=== PATIENT | female | born 1935 | race Caucasian/White ===

== ENCOUNTER 2017-05-30 14:37 | Inpatient (IN) | payer MEDICARE ==
[2017-05-30] VITALS (13 sets, daily range): BP systolic 115–172; BP diastolic 66–87; PULSE 64–89; RESP 16–20; TEMP 97.9–98.6; O2SAT 97–99
[~2017-05-30] VITALS: Ht 157.5 cm; Wt 59.5 kg
[~2017-05-30 14:37] MED LIST: CALA180T PO; LIPI40TA PO; SOTA80TA PO; ZYRT10TA12 PO
[2017-05-30] MEDS ORDERED: ASPIRIN 81 MG CHEW TAB PO STA (14:59)
[2017-05-30] MEDS ORDERED: HEPARIN SODIUM - IV 10,000 UNITS/10 ML VIAL IV STA (14:59)
[2017-05-30] MEDS ORDERED: NITROGLYCERIN 0.4 MG SL 25 TABS/BTL SL STA (14:59)
[2017-05-30] MEDS ORDERED: SODIUM CHLOR 0.9% 1000 ML INJ 1,000 ML IV ONE (14:59)
[2017-05-30] MEDS ORDERED: SODIUM CHLORIDE 0.9% FLUSH 10 ML FLUSH IVF PRN (15:00)
[2017-05-30] MEDS ORDERED: NITROGLYCERIN-DEXTROSE INJ 250 ML IV SCH (15:00)
[2017-05-30] MEDS ORDERED: NITROGLYCERIN 0.4 MG SL 25 TABS/BTL SL ONE (15:02)
[2017-05-30] MEDS ORDERED: NITROGLYCERIN-DEXTROSE INJ 250 ML ONE (15:02)
[2017-05-30] MEDS ORDERED: HEPARIN-NS/PF INJ 500 ML ONE (15:20)
[2017-05-30] MEDS ORDERED: MIDAZOLAM HCL 2 MG/2 ML VIAL ONE (15:21)
--- NOTE | 2017-05-30 15:26 | RADRPT ---
EXAM DATE/TIME: 05/30/2017 15:00 [place] COMPARISON: No previous studies available for comparison. INDICATIONS : Stemi alert MEDICAL HISTORY : None. SURGICAL HISTORY : None. ENCOUNTER: Initial ACUITY: 1 day PAIN SCORE: 10/10 LOCATION: Bilateral chest FINDINGS: A single view of the chest demonstrates the lungs to be symmetrically aerated without evidence of mas s, infiltrate or effusion. The cardiomediastinal contours are unremarkable. Osseous structures are intact. CONCLUSION: 1. No acute cardiopulmonary findings. Zak Merlos MD on May 30, 2017 at 15:24 Board Certified Radiologist. This report was verified electronically.
[2017-05-30] MEDS ORDERED: BIVALIRUDIN 250 MG VIAL ONE (15:32)
[2017-05-30 15:34] LABS: I-STAT SODIUM 141 MMOL/L (138-146)
[2017-05-30 15:35] LABS: BASOPHIL # 0.1 TH/MM3 (0-0.2); BASOPHIL % 0.8 % (0.0-2.0); EOSINOPHIL # 0.8 TH/MM3 (0-0.4); EOSINOPHIL % 5.3 % (0.0-4.0); HEMATOCRIT 39.6 % (35.0-46.0); HEMO FLAGS DIFF FINAL; LYMPH % 21.3 % (9.0-44.0); MEAN CELL VOLUME 90.7 FL (80.0-100.0); MEAN CORPUSCULAR HEMOGLOBIN 29.4 PG (27.0-34.0); MEAN CORPUSCULAR HGB CONC 32.4 % (32.0-36.0); MONO % 9.6 % (0.0-8.0); PLATELET COUNT 280 TH/MM3 (150-450); RED BLOOD COUNT 4.37 MIL/MM3 (4.00-5.30); RED CELL DISTRIBUTION WIDTH 13.3 % (11.6-17.2); WHITE BLOOD COUNT 14.2 TH/MM3 (4.0-11.0)
[2017-05-30] MEDS ORDERED: HEPARIN SODIUM - IV 10,000 UNITS/10 ML VIAL ONE (15:37)
--- NOTE | 2017-05-30 15:37 | PD ---
HPI Chief Complaint: Chest Pain Time Seen by Provider: 14:59 Travel History International Travel<30 days: No Contact w/Intl Traveler<30days: No Traveled to known affect area: No History of Present Illness HPI 82-year-old female with history of hypertension, A. fib, high cholesterol, presents to the ER today with substernal chest pains that started at 1:30 PM. She reports worsening with walking. She reports mild shortness of breath. She denies any other issues. Pain is currently reported at a 7 out of 10. EKG shows new left bundle branch block with ST depressions in the inferior lead and ST elevations and one in aVL. Concerning for ST elevation [place]. Modifying Factors: None Associated Signs & Symptoms: Substernal chest pain, STEMI alert Risk Factors: Hypertension, high cholesterol, A. fib PFSH Past Medical History Cancer: No Diabetes: No Glaucoma: No Hepatitis: No Hiatal Hernia: No Hypertension: Yes Thyroid Disease: No Past Surgical History Abdominal Surgery: Yes (APPENDECTOMY) Cardiac Surgery: No Endocrine Surgery: No Eye Surgery: Yes (LEFT CATARACT JUN 2010 ) Genitourinary Surgery: Yes (BLADDER SUSPENSION) Gynecologic Surgery: Yes (TUBAL LIGATION; HYST) Oral Surgery: Yes (T&A) Pacemaker: No Thoracic Surgery: No Social History Alcohol Use: No Tobacco Use: No Allergies-Medications (Allergen,Severity, Reaction): Coded Allergies: Penicillin (Verified Allergy, Intermediate, HIVES, 01/14/11) [place] (Verified Allergy, Mild, ITCHING, 01/14/11) Reported Meds & Prescriptions Reported Meds & Active Scripts Active Reported Zyrtec (Cetirizine HCl) 10 Mg Tab 10 Mg PO DAILY Lipitor (Atorvastatin Calcium) 40 Mg Tab 40 Mg PO DAILY Isoptin Sr (Verapamil HCl) 180 Mg Tabcr 180 Mg PO DAILY Betapace (Sotalol HCl) 80 Mg Tab 80 Mg PO DAILY Review of Systems Except as stated in HPI: all other systems reviewed are Neg Physical Exam Narrative GENERAL: Well-developed elderly white female patient currently in moderate distress. Awake and oriented 3. SKIN: Focused skin assessment warm/dry. HEAD: Atraumatic. Normocephalic. EYES: Pupils equal and round. No scleral icterus. No injection or drainage. ENT: No nasal bleeding or discharge. Mucous membranes pink and moist. NECK: Trachea midline. No JVD. CARDIOVASCULAR: Regular rate and rhythm. No murmur appreciated. Pulses are present and equal bilaterally. RESPIRATORY: No accessory muscle use. Clear to auscultation. Breath sounds equal bilaterally. GASTROINTESTINAL: Abdomen soft, non-tender, nondistended. Hepatic and splenic margins not palpable. MUSCULOSKELETAL: No obvious deformities. No clubbing. No cyanosis. No edema. NEUROLOGICAL: Awake and alert. No obvious cranial nerve deficits. Motor grossly within normal limits. Normal speech. PSYCHIATRIC: Appropriate mood and affect; insight and judgment normal. Data Data Last Documented VS Vital Signs Date Time Temp Pulse Resp B/P Pulse Ox O2 Delivery O2 Flow Rate FiO2 05/30/17 14:55 98 Nasal Cannula 2.00 05/30/17 14:39 98.1 67 18 172/78 Orders Electrocardiogram (05/30/17 ) Troponin I (05/30/17 14:59) Ckmb (Isoenzyme) Profile (05/30/17 14:59) Complete Blood Count With Diff (05/30/17 14:59) I-Stat Profile (05/30/17 14:59) I-Stat Creatinine (05/30/17 14:59) Calcium (05/30/17 14:59) Magnesium (Mg) (05/30/17 14:59) Prothrombin Time / Inr (Pt) (05/30/17 14:59) Act Partial Throm Time (Ptt) (05/30/17 14:59) B-Type Natriuretic Peptide (05/30/17 14:59) Chest, Single Ap (05/30/17 14:59) Electrocardiogram (05/30/17 14:59) Oxygen Administration (05/30/17 14:59) Iv Access Insert/Monitor (05/30/17 14:59) Oximetry (05/30/17 14:59) Sodium Chlor 0.9% 1000 Ml Inj (Ns 1000 M (05/30/17 14:59) Sodium Chloride 0.9% Flush (Ns Flush) (05/30/17 15:00) Aspirin Chew (Aspirin Chew) (05/30/17 14:59) Nitroglycerin Sl (Nitrostat Sl) (05/30/17 14:59) Nitroglycerin-Dextrose Inj (Nitroglyceri (05/30/17 15:00) Heparin Inj (Heparin Inj) (05/30/17 14:59) Nitroglycerin Sl (Nitrostat Sl) (05/30/17 15:02) Nitroglycerin-Dextrose Inj (Nitroglyceri (05/30/17 15:02) Heparin-Ns/Pf Inj (Heparin-Ns/Pf Inj) (05/30/17 15:20) Midazolam Inj (Versed Inj) (05/30/17 15:21) Fentanyl Inj (Fentanyl Inj) (05/30/17 15:21) Cardiac Catheterization (05/30/17 ) Bivalirudin Inj (Angiomax Inj) (05/30/17 15:32) Admit Order (Ed Use Only) (05/30/17 15:33) [facility] Medical Decision Making Medical Screen Exam Complete: Yes Emergency Medical Condition: Yes Medical Record Reviewed: Yes Interpretation(s) EKG shows new left bundle branch block with ST elevations in [address] depressions in inferior leads. Differential Diagnosis STEMI alert Narrative Course Case is discussed with catheterization lab nurse and related to Dr. Hunt who saw EKG via intact, and he wanted the patient to be brought up as a STEMI alert. STEMI alert protocol initiated including aspirin, nitroglycerin, and heparin. Patient to be admitted to cardiac unit after procedure. Diagnosis Primary Impression: STEMI (ST elevation myocardial infarction) Admitting Information Admitting Physician Requests: Admit Zakia Flowers MD May 30, 2017 15:37
[2017-05-30 15:45] LABS: APTT (PATIENT) 23.9 SEC (24.3-30.1); INTERNATIONAL NORMALIZED RATIO 0.9 RATIO; PROTHROMBIN TIME - PATIENT 10.3 SEC (9.8-11.6)
[2017-05-30] MEDS ORDERED: PHENYLEPH/NS 1000 MCG/10 ML SYR ONE (15:52)
[2017-05-30] MEDS ORDERED: ATROPINE SULFATE 1 MG/10 ML SYRINGE ONE (15:52)
[2017-05-30] MEDS ORDERED: PRASUGREL 10 MG TAB ONE (15:55)
[2017-05-30 16:03] LABS: CREATINE KINASE 69 U/L (26-192)
--- NOTE | 2017-05-30 16:15 | CATHPROC ---
[employer] HIS Report Study Information Study Number Admission Scheduled Start Study Start [id number] May 30 2017 2:37PM 05/30/2017 May 30 2017 3:24PM [place] [facility] Cardiac Catheterization Admit Source Facility Department Emergency department [facility] - [facility] [employer] Physician and Clinical Staff Initial Sarmad Mahajan Glass Vial Bending Conveyor Feeder Kayleen Lorenzo RN Glass Vial Bending Conveyor Feeder Cherelle Ring BSRN Other cathlab, cathlab Recorder Dilip Lizarraga RCIS(BS) Scrub Sky DoRT(R) Procedures Performed Procedure Location (Site) Vessel Name Coronary Angiograms LCA Left Coronary Coronary Angiograms RCA Right Coronary Drug Eluting Inflatio RCA Mid Right Coronary PTCA RCA Mid Right Coronary Wire insertion Fem Art (right) Femoral Art Equipment Time Coin Teller Description Size Mfg Part Number Used/Scraped PRO DONALDO GLIDE CLOSER 15:56 [employer] FR 6 [id number] *[id number] Used DEVICE TRANSDUCER, TRUWAVE [id number] 15:33 GAXIOLA LORENZO * Used W/STOCKCOCK *[id number] 16:13 [employer] STENT, SYNERGY 2.75 X 12MM Used *[id number] 15:47 [employer] STENT, SYNERGY 2.75 X 28MM Used *[id number] 15:48 [employer] STENT, SYNERGY 2.75 X 32MM Used *[id number] 15:39 [employer] WIRE, SAMURAI 190CM 190CM Used *[id number]- INTRODUCER SET, 15:33 [employer] FR 5 SC-NT-U-SST Used MICROPUNCTURE, STIFFENED *[id number] *[id number] *[id number] *[id number] 15:33 [employer] Art INDUSTRIES PACK, CCL CUSTOM * Used *[id number] 15:39 [employer] BALLOON, 2.0 X 12MM EUPHORA 12MM Used *[id number] 15:34 [employer]/AVE EBU 3.5 Z2 GUIDE CATHETER FR 6 Used *[id number] 15:43 [employer] MEDICAL 30 JORGE INDEFLATOR Used *[id number] 15:33 [employer] WIRE, 3MMJ .035 180CM 180CM Used *[id number] 15:33 NAMIC MANIFOLD, 4 PORT * Used *[id number] 15:33 [employer] OMNIPAQUE, 350 MG, 150ML 150ML [id number] Used [id number] 15:33 [employer] BLANKET,WARM AIR CCL * Used *[id number] 15:34 TERUMO MEDICAL SHEATH, FR6 TERUMO (10CM) FR 6 [id number] Used Equipment Model, Serial, Lot Number and Expiration Data Description Model Number Serial Number Lot Number Expiration Date STENT, SYNERGY [id number] 12-03-2017 STENT, SYNERGY [id number] 11-21-2017 WIRE, ZOHAIB 190CM [id number] 11-28-2019 History: Allergies Allergy Reaction [place] ITCHING Penicillin HIVES History: Risk Factors Family History of Hypertension Dyslipidemia Previous MT Previous Heart Failure Premature CAD Yes No No No No Prior Valve Prior PCI Prior CABG Surgery No No No Cerebrovascular Peripheral Artery Chronic Lung On Dialysis Diabetes Disease Disease Disease No No No No No History: Symptoms/Diagnosis Selection Items Chest pain History: Stress Tests Stress or Imaging Studies Performed No History: Other Disease Selection Items HTN History: Other Current Smoker No Labs Hgb (g/dl) Hct (%) 11.60-17.00 35.00-51.00 13.3 39 BUN (mg/dl) Creatinine (mg/dl) 7.00-18.00 0.50-1.30 15 Not Drawn Na (meq/l) K (meq/l) Cl (meq/l) 136.00-145.00 3.50-5.10 98.00-107.00 141 4 103 CPK-MB (ng/ML) 0.50-3.60 Not Drawn Medication Medication Total Dose (Bolus/Oral) Medication Total Dosage/Unit 1% XYLOCAINE 20 mL ANGIOMAX BOLUS 9 mL EFFIENT 60 mg FENTANYL 25 mcg VERSED 1 mg Medications (Bolus/Oral) Medication Time Given Dosage/Unit Administered By Reason VERSED 05/30/2017 3:29:11 PM 1 mg Kayleen Lorenzo 1 mg VERSED given in lab by Kayleen Lorenzo, KAIN in Left Antecubital via Peripheral IV. Ordered by Sarmad Lynch. FENTANYL 05/30/2017 3:29:20 PM 25 mcg Kayleen Lorenzo 25 mcg FENTANYL given in lab by Kayleen Lorenzo RN in Left Antecubital via Peripheral IV. Ordered by Sarmad Contreras. 1% XYLOCAINE 05/30/2017 3:31:02 PM 20 mL Sarmad Contreras 20 mL 1% XYLOCAINE given in lab by Sarmad Contreras in Right Groin via Subcutaneous. ANGIOMAX BOLUS 05/30/2017 3:38:22 PM 9 mL Kayleen Lorenzo 9 mL ANGIOMAX BOLUS given in lab by Kayleen Lorenzo RN in Left Antecubital via Peripheral IV. EFFIENT 05/30/2017 3:55:02 PM 60 mg Kayleen Lorenzo 60 mg EFFIENT given in lab by Kayleen Lorenzo RN via Oral. Medication (Drip) Medication Time Given Dosage/Unit Concentration/Unit Diluent (ml) Solution ANGIOMAX DRIP 05/30/2017 3:38:36 PM 1.75 mg/kg/hr 250 mg 50 NaCl .9 1.75 mg/kg/hr ANGIOMAX DRIP given in lab by Kayleen Lorenzo RN in Left Antecubital via Peripheral IV. Pump/Drip Flow = 21 ml/hr using NaCl .9 with a concentration of 250 mg in 50 ml. IV Solutions 05/30/2017 3:24:47 PM 0 mL (IV) 1000 NaCl .9 Patient arrived on IV Solutions in Left Antecubital via Peripheral IV. Pump/Drip Flow = 20 ml/hr usin g NaCl .9. JOAN-SYNEPHRINE 05/30/2017 3:44:41 PM 200 mg 200 mg JOAN-SYNEPHRINE given in lab by Kayleen Lorenzo RN in Left Antecubital via Peripheral IV. Fo r BP. NITROGLYCERIN DRIP 05/30/2017 3:24:47 PM 10 mcg/min 50 mg 250 D5W Patient arrived on 10 mcg/min NITROGLYCERIN DRIP in Left Antecubital via Peripheral IV. Pump/Drip Rogers w = 3 ml/hr using D5W with a concentration of 50 mg in 250 ml. Final Case Assessment Cardiovascular HR Rhythm Chest Pain 57 sbrady 0 Edema Present Skin color Skin None Normal Warm Dry Circulatory - Right Pulses Dorsalis Pedis Femoral 2 2 Scale (0,1,2,3,4,d) Circulatory - Left Pulses Dorsalis Pedis Femoral 2 2 Scale (0,1,2,3,4,d) Neurological State Oriented to time-place- Alert Moves all extremities person Respiration - General Respiration Rate SpO2 (%) (B/min) 15 100 Final Case Assessment Cardiovascular HR Rhythm Chest Pain 57 sbrady 0 Edema Present Skin color Skin None Normal Warm Dry Circulatory - Right Pulses Dorsalis Pedis Femoral 2 2 Scale (0,1,2,3,4,d) Circulatory - Left Pulses Dorsalis Pedis Femoral 2 2 Scale (0,1,2,3,4,d) Neurological State Oriented to time-place- Alert Moves all extremities person Respiration - General Respiration Rate SpO2 (%) (B/min) 15 100 Chronological Log Time Study Chronological Log 15:24:27 Patient arrived via Bed. 15:24:28 Patient Name, D.O.B, / Armband Verified By R.N. 15:24:28 Consent signed by the physician and the patient and verified by the [employer] staff. 15:24:29 Pre-op and post- op instructions given; patient acknowledges understanding of instructions. 15:24:30 Verbal Stimulation=2 Physical Stimulation=2 Airway=2 Respiration=2 TOTAL=8. (0=absent, 1=li mited, 2=present) 15:24:31 Presedation assessment performed by F[employer] RN. 15:24:31 Immediate Presedation assesment performed by physician. 15:24:32 Patient has been NPO for More than 6Hrs. 15:24:32 Skin Breakdown- none per patient 15:24:43 Patient Warmer Placed on the Table. 15:24:43 Disposable Defibrillator Pads Placed On Patient. 15:24:44 [place] Prominences Protected 15:24:46 A # 20 IV was noted in the Antecubital (left). Grade = 0 Patient arrived on 10 mcg/min NITROGLYCERIN DRIP in Left Antecubital via Peripheral IV. Pump/Dr ip Flow = 3 ml/hr 15:24:47 using D5W with a concentration of 50 mg in 250 ml. 15:24:47 Patient arrived on IV Solutions in Left Antecubital via Peripheral IV. Pump/Drip Flow = 20 ml/hr using NaCl .9. 15:24:48 History and physical on the chart or being dictated. Assessment: Final Case, HR=57 BPM, Rhythm=sbrady, Chest Pain=0, Edema=None, Color=Normal, Skin = Warm, Dry Right Pulses: Dain Ped=2, Femoral=2 15:26:02 Left Pulses: Dain Ped=2, Femoral=2 Neurological: State=Alert, Ox3, CARY Respiration: Resp=15 B/min, VjZ8=173 % 15:28:18 Bilateral groins prepped with 2% chlorhexidine, and with a 3 min. waiting time. :: MD arrived. :: Contrast Scanned :: Immediate Presedation assesment performed by physician. 1 mg VERSED given in lab by Kayleen Lorenzo, RN in Left Antecubital via Peripheral IV. Ordere d by Diane, 15:29:11 Sarmad. 25 mcg FENTANYL given in lab by Kayleen Lorenzo, KAIN in Left Antecubital via Peripheral IV. Or dered by Diane, 15::20 Sarmad. Time Out. Correct patient, correct procedure,correct physician, ,power injector not loaded with contrast with surgical : team present. Time Out Concurred by , individual staff in procedure 15::37 Case Start 15::38 Verbal Stimulation=2 Physical Stimulation=2 Airway=2 Respiration=2 TOTAL=8. (0=absent, 1=li mited, 2=present) 15::34 Reference ECG taken Vitals capture started with the following parameters, Patient=Adult, Interval=5 min, Initial Pr shrlxr=388 mmHg, 15:30:44 Deflation Rate=5 mmHg 15::02 20 mL 1% XYLOCAINE given in lab by Sarmad Contreras in Right Groin via Subcutaneous. 15::54 Pressure channel 1 zeroed. 15:32:41 Access site was Right Femoral Artery. A INTRODUCER SET, MICROPUNCTURE, STIFFENED FR 5 was advanced into the Fem Art (right) using the 15:32:55 Percutaneous technique. A SHEATH, FR6 TERUMO (10CM) FR 6 was exchanged in the Fem Art (right). This was necessary in or judson to 15:33:22 accomodate a larger catheter. 15:34:11 An injection in the Fem Art (right) was made through the SHEATH, FR6 TERUMO (10CM) FR 6. 15:34:34 Ventricular Fibrillation noted. 15:34:58 Patient converted to s. marbella Recorded Pressure: LV, NL=718, Condition=Condition 1 15:35:43 (Left Ventricle) LV 118/-1/25 Recorded Pressure: Ao, HR=69, Condition=Condition 1 15:35:59 (Aorta) Ao 162/51/102 Recorded Pressure: LV, Ao, HR=73, Condition=Condition 1 15:36:10 (Left Ventricle) LV 150/15/19, (Aorta) Ao 162/69/108 Recorded Pressure: Ao, HR=69, Condition=Condition 1 15:36:18 (Aorta) Ao 162/63/107 15:36:27 The RCA was injected and visualized at various angles. OMNIPAQUE, 350 MG, 150ML 150ML used . 15:36:56 Catheter was removed A JL 4.0 INFINITI CATHETER FR 5 was advanced over a wire. OMNIPAQUE, 350 MG, 150ML 150ML was us ed for 15:37:21 injections. Vitals capture started with the following parameters, Patient=Adult, Interval=5 min, Initial Pr xtvbdg=084 mmHg, 15:37:35 Deflation Rate=5 mmHg 15:37:42 The LCA was injected and visualized at various angles. OMNIPAQUE, 350 MG, 150ML 150ML used . 15:38:22 9 mL ANGIOMAX BOLUS given in lab by Kayleen Lorenzo RN in Left Antecubital via Periphera l IV. 1.75 mg/kg/hr ANGIOMAX DRIP given in lab by Kayleen Lorenzo RN in Left Antecubital via Perip heral IV. 15:38:36 Pump/Drip Flow = 21 ml/hr using NaCl .9 with a concentration of 250 mg in 50 ml. 15:38:46 Catheter was removed A JR 4.0 GUIDE CATHETER FR 6 was advanced over a wire. OMNIPAQUE, 350 MG, 150ML 150ML was used for 15:38:47 injections. Vitals capture started with the following parameters, Patient=Adult, Interval=5 min, Initial Pr cwzzdz=942 mmHg, 15:38:58 Deflation Rate=5 mmHg 15:40:02 A WIREZOHAIB 190CM 190CM was inserted via Fem Art (right). 15:40:49 Interventional wire has crossed the lesion 15:42:04 A BALLOON, 2.0 X 12MM EUPHORA 12MM was inserted over WIRE, SAMURAI 190CM 190CM via the RCA Mid. A BALLOON, 2.0 X 12MM EUPHORA 12MM over a WIRE, SAMURAI 190CM 190CM in the RCA Mid was inflated using a 15:42:12 30 JORGE INDEFLATOR at 12 jorge for 20 sec. 15:43:16 Balloon Removed. 15:44:17 A implantable was advanced through a JR 4.0 GUIDE CATHETER FR 6 over a WIRE, SAMURAI 190CM 190CM. 15:44:41 200 mg JOAN-SYNEPHRINE given in lab by Kayleen Lorenzo, RN in Left Antecubital via Periphe ral IV. For BP. 15:45:44 Stent not deployed. Stent removed and intact. A STENT, SYNERGY 2.75 X 32MM was advanced through a JR 4.0 GUIDE CATHETER FR 6 over a WIRE, [facility] URAI 15:46:28 190CM 190CM. A STENT, SYNERGY 2.75 X 32MM was deployed using a 30 JORGE INDEFLATOR at 14 atmospheres for 15 se conds in the 15:47:30 RCA Mid. 15:48:04 Delivery device removed A STENT, SYNERGY 2.75 X 12MM was advanced through a JR 4.0 GUIDE CATHETER FR 6 over a WIRE, DARCI URAI 15:51:41 190CM 190CM. A STENT, SYNERGY 2.75 X 12MM was deployed using a 30 JORGE INDEFLATOR at 12 atmospheres for 10 se conds in the 15:53:18 RCA Mid. 15:53:28 Re-inflated the stent balloon in the RCA Mid to 16 JORGE for 10 seconds. 15:54:30 Delivery device removed 15:55:02 60 mg EFFIENT given in lab by Kayleen Lorenzo, RN via Oral. 15:55:06 Wire removed 15:55:30 Catheter was removed 15:55:40 PERCLOSE, PRO GLIDE CLOSER DEVICE FR 6 placement in the Fem Art (right) 15:58:13 Case End Assessment: Final Case, HR=57 BPM, Rhythm=sbrady, Chest Pain=0, Edema=None, Color=Normal, Skin = Warm, Dry Right Pulses: Dain Ped=2, Femoral=2 15:58:49 Left Pulses: Dain Ped=2, Femoral=2 Neurological: State=Alert, Ox3, CARY Respiration: Resp=15 B/min, GzK6=773 % Vitals capture started with the following parameters, Patient=Adult, Interval=5 min, Initial Pr xneeen=836 mmHg, 16:00:10 Deflation Rate=5 mmHg Vitals capture started with the following parameters, Patient=Adult, Interval=5 min, Initial Pr blojor=366 mmHg, 16:04:18 Deflation Rate=5 mmHg 16:05:00 HR=62 bpm, XUKT=177/66 mmhg, SpO2=95.0 %, Resp=18 B/min, Pain=0, Eda=10, [place]=2 16:07:06 Patient moved to stretcher 16:09:25 Vitals capture stopped. End Study - Contrast Media Used In Study Contrast Total Opened (mL) Total Used (mL) Total Wasted (mL) Omnipaque 75 75 0 End Study - Radiation Exposure Fluoro Time (minutes) 9.9 End Study - Patient Disposition Complications Transferred To Interventional Outcome No Telemetry Bed successful
--- NOTE | 2017-05-30 16:42 | MA ---
cc: YOMI MCDONOUGH DATE 05/30/17 DATE OF 1935 PROCEDURE PERFORMED 1. Left heart catheterization. 2. Selective right and left coronary angiography. 3. Successful PCI to the right coronary artery. INDICATION Inferior STEMI. PROCEDURE DESCRIPTION Consent signed. The patient was taken emergently to the cardiac [facility] in a fasting state. The right groin was prepped and draped in a sterile fashion. Using 1% lidocaine for local anesthesia and a micropuncture kit a 6-Amharic sheath was inserted into the right common femoral artery. A right common femoral artery angiography was performed to confirm position of the sheath. Then selective right and left coronary angiography was performed with JR4 and JL4 diagnostic catheters. Angiography was taken in multiple views. The JR4 was introduced into the ventricle to measure the LV pressures. We identified the culprit of the STEMI as the right coronary artery. The right coronary artery was engaged with a JR4 6Fr guide. The vessel was wired with a [place] wire which was anchored distally in the PDA. The vessel was predialted with a 2.0 x 12 balloon. This was followed by insertion and deployment of 2.75 x 32 drug-eluting stent. There was a residual stenosis distally for which another 2.75 ___ stent was deployed. The stent was post dilated with a thin balloon. Final angiographic views revealed good stent apposition and expansion with NIC- III flow. The patient tolerated the procedure well without complications. Estimated blood loss less than 30 cc. Total contrast used 75 cc. For IV anticoagulation Angiomax was used. The patient was floated with Effient after the procedure and also given aspirin. RESULTS LEFT VENTRICLE The left ventricular pressure was 150/51 with an LVEDP of 19. The aortic pressure was 162/63 with a mean of 107. There was no gradient upon pullback from the left ventricle to the aorta. ANGIOGRAPHY 1. The right coronary artery is a dominant vessel giving off the PDA. It has a thrombotic lesion in its midsegment with NIC-I flow. 2. The left main is short, patent. 3. The LAD is a transapical vessel. It is tortuous with minimal luminal irregularities and nonobstructing coronary artery disease. The LAD is giving for a diagonal vessel which is patent, tortuous with NIC-III flow and nonobstructive coronary artery disease. 4. Left circumflex artery has minimal luminal irregularities. It is composed mostly for OM1 vessel which is tortuous and is a ____ vessel of the heart. There is also AV groove segment of the circumflex which is patent with NIC-III flow and nonobstructive coronary artery disease. CONCLUSIONS 1. Successful PCI to right coronary artery in the setting of a STEMI. 2. Elevated LVEDP. RECOMMENDATIONS -Admit to the [facility] for post-cath recovery. -Continue on aspirin and Effient as well as beta blockers, EMMA inhibitor as tolerated by blood pressure and heart rate. -Start on statins. -Get echocardiogram before discharge to assess LV systolic function. MD KARLA Gatica/SAL /4:11 PM /4:17 PM FREDDY
--- NOTE | 2017-05-30 17:10 | MB ---
cc: YOMI MCDONOUGH MD DATE OF CONSULTATION 05/30/17 [address]-segment elevation myocardial infarction. HISTORY OF PRESENT ILLNESS 82-year-old female with past medical history significant for hypertension, hyperlipidemia, atrial fibrillation that presented to the emergency department with substernal chest pressure that started at 1:30 p.m. today, worsening with exertion and associated with shortness of breath. EKG in the emergency department was significant for ST elevations in leads I and aVL with depressions in 2, 3 and aVF for which STEMI alert was called. The patient's chest pain was relieved by nitroglycerin in the emergency department. She remained hemodynamically stable. Interventional cardiology has been consulted for further management and evaluation. REVIEW OF SYSTEMS Negative except for what is mentioned in the HPI. PAST MEDICAL HISTORY 1. Hypertension 2. Cholesterol. PAST SURGICAL HISTORY 1. Appendectomy, 2. Left cataract surgery, 3. Bladder suspension 4. Tubal ligation. SOCIAL HISTORY No alcohol, tobacco use and no illicit drug use. ALLERGIES ORANGE PENICILLIN MEDICATIONS Home 1. Zyrtec 10 mg p.o. daily, 2. Lipitor 40 mg p.o. daily. 3. Verapamil 180 mg p.o. daily 4. Sotalol 80 mg p.o. daily FAMILY HISTORY Noncontributory. PHYSICAL EXAMINATION VITAL SIGNS: Temperature 98, heart rate 67, respiratory rate 18, blood pressure 172/78, O2 sat 99% room air. GENERAL: Awake, alert, oriented times three, complaining of some mild chest discomfort. NECK: No JVD or carotid bruits. HEART: Regular rate and rhythm with no murmurs, rubs or gallops. LUNGS: Clear to auscultation bilaterally. No wheezes or rhonchi or rales. ABDOMEN: Soft, nontender, nondistended. Positive bowel sounds. EXTREMITIES: There is no cyanosis or edema. Pulses throughout. LABORATORY DATA CBC hemoglobin ____39, platelet count 280, INR 0.9, sodium 141, potassium 4.0 , BUN 15, creatinine 0.8, troponin less than 0.02 and BNP of 56. IMAGING STUDIES Chest x-ray - No acute cardiopulmonary process. CARDIOLOGY STUDIES EKG shows sinus rhythm with ST-segment elevation in one and aVL suggestive of myocardial injury and changes in 2, 3 and aVF ASSESSMENT/PLAN 82-year-old female with cardiac risk factors that include hypertension, hyperlipidemia, presented to the emergency department with an inferior S-T segment elevation IN. Her NIC risk score 2 and Killip class 1. She remains afebrile and hemodynamically stable. Per ACC/AHA guidelines the recommendation will be to take her to cardiac labor relations consultant for emergent PCI. Risks and benefits of left heart cath/PCI including but not limited to infection, neurovascular trauma, bleeding, acute kidney injury, emergent bypass surgery, stroke and have been explained to the patient. The patient understands the risks and she is willing to proceed. RECOMMENDATIONS Keep n.p.o. for emergent left heart cath. Continue aggressive medical management for ACS per ACC AHA guidelines. Further therapy to be determined. MD KARLA Gatica/ /4:17 PM /4:57 PM FREDDY
[2017-05-30] MEDS ORDERED: SPIR50TA PO (17:11)
[2017-05-30] MEDS ORDERED: IOHEXOL 350 MG/ML 100 ML BTL (for Cath Lab) OTHER ONE (19:04)
[2017-05-30] MEDS ORDERED: ACETAMINOPHEN 325 MG TAB PO PRN ×2 (21:00→22:15)
[2017-05-30] MEDS ORDERED: MISC INFORMATION XX ONE ×2 (22:15)
[2017-05-30] MEDS ORDERED: ATROPINE SULFATE 1 MG/ML VIAL IV PRN (22:15)
[2017-05-30] MEDS ORDERED: ONDANSETRON HCL 4 MG/2 ML VIAL IV PRN (22:15)
[2017-05-31] VITALS (24 sets, daily range): BP systolic 108–151; BP diastolic 56–79; PULSE 55–92; RESP 16–20; TEMP 97.3–98.1; O2SAT 95–98
[2017-05-31 05:30] LABS: BASOPHIL # 0.1 TH/MM3 (0-0.2); BASOPHIL % 0.4 % (0.0-2.0); HEMATOCRIT 36.8 % (35.0-46.0); HEMO FLAGS DIFF FINAL; LYMPH % 9.7 % (9.0-44.0); LYMPHOCYTE # 1.4 TH/MM3 (1.0-4.8); MEAN CELL VOLUME 90.3 FL (80.0-100.0); MEAN CORPUSCULAR HEMOGLOBIN 30.4 PG (27.0-34.0); MEAN CORPUSCULAR HGB CONC 33.6 % (32.0-36.0); MONO % 5.7 % (0.0-8.0); NEUT % 84.2 % (16.0-70.0); PLATELET COUNT 239 TH/MM3 (150-450); RED BLOOD COUNT 4.07 MIL/MM3 (4.00-5.30); RED CELL DISTRIBUTION WIDTH 13.1 % (11.6-17.2); WHITE BLOOD COUNT 14.2 TH/MM3 (4.0-11.0)
[2017-05-31 05:59] LABS: BICARBONATE 24.9 MEQ/L (21.0-32.0); POTASSIUM 3.4 MEQ/L (3.5-5.1)
[2017-05-31] MEDS: METOPROLOL TARTRATE 25 MG TAB PO SCH ×2 (09:16→20:18)
[2017-05-31] MEDS: PRASUGREL 10 MG TAB PO SCH (09:16)
[2017-05-31] MEDS: LISINOPRIL 5 MG TAB PO SCH (09:16)
[2017-05-31] MEDS: ASPIRIN 81 MG CHEW TAB PO SCH (09:17)
--- NOTE | 2017-05-31 11:00 | PD.CARD.PN ---
Subjective Subjective Remarks no complaints no overnight events Objective Medications Current Medications Medications (Trade) Dose Ordered Sig/Jossie Route Start Time Stop Time Status Last Admin Sodium Chloride 2 ml 2 ml UNSCH PRN IVF 05/30/17 15:00 (Nitroglycerin-Dextrose Inj) 250 ml @ 0 mls/hr TITRATE IV 05/30/17 15:00 (Tylenol) 650 mg Q4H PRN PO 05/30/17 21:00 05/30/17 21:45 (Tylenol) 325 mg Q4H PRN PO 05/30/17 22:15 (Aspirin Chew) 81 mg DAILY PO 05/31/17 09:00 05/31/17 09:17 (Effient) 10 mg DAILY PO 05/31/17 09:00 05/31/17 09:16 (Atropine Inj) 0.5 mg UNSCH PRN IV 05/30/17 22:15 (Zofran Inj) 4 mg Q4H PRN IV 05/30/17 22:15 (Lopressor) 12.5 mg BID PO 05/31/17 09:00 05/31/17 09:16 (Prinivil) 5 mg DAILY PO 05/31/17 09:00 05/31/17 09:16 (Lipitor) 10 mg HS PO 05/31/17 21:00 Vital Signs / I&O Vital Signs Date Time Temp Pulse Resp B/P Pulse Ox O2 Delivery O2 Flow Rate FiO2 05/31/17 08:30 83 05/31/17 08:30 83 16 138/72 98 05/31/17 06:12 57 05/31/17 05:00 58 05/31/17 04:00 57 05/31/17 03:00 98.0 75 20 150/74 96 05/31/17 03:00 55 05/31/17 02:00 88 05/31/17 01:00 74 05/31/17 00:00 98.1 77 20 149/79 96 05/31/17 00:00 76 05/30/17 23:00 76 05/30/17 22:00 78 05/30/17 21:00 80 05/30/17 20:03 98 21 05/30/17 20:00 98.6 76 20 138/66 97 05/30/17 20:00 98.6 76 20 138/66 97 05/30/17 20:00 76 05/30/17 19:00 76 05/30/17 18:00 66 05/30/17 17:00 64 05/30/17 16:30 68 05/30/17 16:30 97.9 68 16 115/72 99 05/30/17 16:25 16 05/30/17 15:41 18 99 Nasal Cannula 2 05/30/17 15:41 99 Nasal Cannula 2 05/30/17 15:00 89 18 134/87 98 Room Air 05/30/17 14:55 98 Nasal Cannula 2.00 05/30/17 14:39 98.1 67 18 172/78 99 Room Air I/O 05/30/17 05/30/17 05/30/17 05/31/17 05/31/17 05/31/17 07:00 15:00 23:00 07:00 15:00 23:00 Intake Total 420 ml Output Total 500 ml Balance -80 ml Intake Oral 420 ml Output Urine Total 500 ml # Voids 1 Physical Exam GENERAL: Well-nourished, well-developed patient. SKIN: Warm and dry. HEAD: Normocephalic. EYES: No scleral icterus. No injection or drainage. NECK: Supple, trachea midline. No JVD or lymphadenopathy. CARDIOVASCULAR: Regular rate and rhythm without murmurs, gallops, or rubs. RESPIRATORY: Breath sounds equal bilaterally. No accessory muscle use. GASTROINTESTINAL: Abdomen soft, non-tender, nondistended. EXTREMITIES: No cyanosis, or edema. NEUROLOGICAL: Awake, alert, and oriented x 3. Non-focal. Laboratory Laboratory Tests Test 05/30/17 05/31/17 15:07 04:38 White Blood Count 14.2 TH/MM3 14.2 TH/MM3 Red Blood Count 4.37 MIL/MM3 4.07 MIL/MM3 Hemoglobin 12.8 GM/DL 12.4 GM/DL Bedside Hemoglobin 13.3 G/DL Hematocrit 39.6 % 36.8 % Bedside Hematocrit 39.0 % Mean Corpuscular Volume 90.7 FL 90.3 FL Mean Corpuscular Hemoglobin 29.4 PG 30.4 PG Mean Corpuscular Hemoglobin 32.4 % 33.6 % Concent Red Cell Distribution Width 13.3 % 13.1 % Platelet Count 280 TH/MM3 239 TH/MM3 Mean Platelet Volume 8.1 FL 7.7 FL Neutrophils (%) (Auto) 63.0 % 84.2 % Lymphocytes (%) (Auto) 21.3 % 9.7 % Monocytes (%) (Auto) 9.6 % 5.7 % Eosinophils (%) (Auto) 5.3 % 0.0 % Basophils (%) (Auto) 0.8 % 0.4 % Neutrophils # (Auto) 9.0 TH/MM3 12.0 TH/MM3 Lymphocytes # (Auto) 3.0 TH/MM3 1.4 TH/MM3 Monocytes # (Auto) 1.4 TH/MM3 0.8 TH/MM3 Eosinophils # (Auto) 0.8 TH/MM3 0.0 TH/MM3 Basophils # (Auto) 0.1 TH/MM3 0.1 TH/MM3 CBC Comment DIFF FINAL DIFF FINAL Differential Comment Prothrombin Time 10.3 SEC Prothromb Time International 0.9 RATIO Ratio Activated Partial 23.9 SEC Thromboplast Time Bedside Sodium 141 MMOL/L Bedside Potassium 4.0 MMOL/L Bedside Chloride 103 MMOL/L Bedside Blood Urea Nitrogen 15 MG/DL Bedside Creatinine 0.8 MG/DL Bedside Glucose 166 MG/DL Calcium Level 9.0 MG/DL 8.6 MG/DL Magnesium Level 2.0 MG/DL Total Creatine Kinase 69 U/L Troponin I LESS THAN 0.02 NG/ML B-Type Natriuretic Peptide 56 PG/ML Sodium Level 138 MEQ/L Potassium Level 3.4 MEQ/L Chloride Level 103 MEQ/L Carbon Dioxide Level 24.9 MEQ/L Anion Gap 10 MEQ/L Blood Urea Nitrogen 12 MG/DL Creatinine 0.70 MG/DL Estimat Glomerular Filtration 80 ML/MIN Rate Random Glucose 122 MG/DL Imaging Last Impressions Chest X-Ray 05/30/17 0559 Signed Impressions: Service Date/Time: Tuesday, May 30, 2017 15:00 - CONCLUSION: 1. No acute cardiopulmonary findings. Zak Merlos MD Assessment and Plan Problem List: (1) STEMI (ST elevation myocardial infarction) Assessment and Plan: s/p PCI/DILSHAD to RCA Recommendations: DAPT ASA and Effient Cont ACEi, BB, statin Encourage ambulation and incentive spirometry 2Decho today Hospital consult pending Problem Qualifiers (1) STEMI (ST elevation myocardial infarction): Qualified Code: I21.11 - ST elevation myocardial infarction involving right coronary artery Sarmad Contreras MD May 31, 2017 10:59
--- NOTE | 2017-05-31 13:27 | EKG ---
Date Performed: 05/30/2017 Time Performed: 14:51:03 PTAGE: 82 years EKG: Sinus rhythm BORDERLINE RIGHT AXIS DEVIATION INTRAVENTRICULAR CONDUCTION DELAY ABNORMAL ECG PREVIOUS TRACING : 06/25/[address] depression with possible reciprocal changes seen inferiorly - consider acute lateral myocardial infarction. Clinical correlation recommended. DOCTOR: Braulio Messer Interpretating Date/Time 05/31/2017 13:26:01
--- NOTE | 2017-05-31 13:29 | EKG ---
Date Performed: 05/31/2017 Time Performed: 05:59:14 PTAGE: 82 years EKG: Sinus rhythm Left axis deviation IV conduction defect Inferior/lateral ST-T changes may be due to myocardial isch emia Abnormal ECG PREVIOUS TRACING : 05/30/2017 14.51 Since prior tracing, previously seen ST elevation has resol celi. DOCTOR: Braulio Messer Interpretating Date/Time 05/31/2017 13:28:42
--- NOTE | 2017-05-31 15:29 | PD.CONS ---
[facility] By [facility] Hunt Reason for Consult Medical comanagement Primary Care Physician Braulio Greene M.D. Diagnoses: History of Present Illness This is an 82-year-old female with history of hypertension, dyslipidemia, atrial fibrillation presenting to the emergency department with chest pain, patient was found to have ST elevated myocardial infarction, patient was brought emergently to the cardiac catheterization unit, status post stenting of the RCA. Presently, patient is chest pain-free. She denies smoking, there is a very strong family history of cardiac problems. Patient denies any headache, nausea, vomiting, palpitations or shortness of breath but she was winded with ambulation. Review of Systems ROS Limitations: Other (All other pertinent systems were reviewed and are negative.) Past Family Social History Allergies: Coded Allergies: Penicillin (Verified Allergy, Intermediate, HIVES, 01/14/11) Rush (Verified Allergy, Mild, ITCHING, 01/14/11) Past Medical History Hypertension Dyslipidemia Atrial fibrillation Past Surgical History Cardiac catheterization Reported Medications Spironolactone 50 Mg Tab 50 Mg PO DAILY Lipitor (Atorvastatin Calcium) 40 Mg Tab 40 Mg PO DAILY Isoptin Sr (Verapamil HCl) 180 Mg Tabcr 360 Mg PO DAILY Betapace (Sotalol HCl) 80 Mg Tab 80 Mg PO DAILY Family History Strong family history of cardiac problems including father and son Social History Nonsmoker, no significant alcohol use Physical Exam Vital Signs Vital Signs Date Time Temp Pulse Resp B/P Pulse Ox O2 Delivery O2 Flow Rate FiO2 05/31/17 12:00 72 05/31/17 11:00 97.9 78 16 151/66 95 05/31/17 10:00 71 05/31/17 09:00 81 05/31/17 08:30 83 05/31/17 08:30 83 16 138/72 98 05/31/17 07:00 83 05/31/17 06:12 57 05/31/17 05:00 58 05/31/17 04:00 57 05/31/17 03:00 98.0 75 20 150/74 96 05/31/17 03:00 55 05/31/17 02:00 88 05/31/17 01:00 74 05/31/17 00:00 98.1 77 20 149/79 96 05/31/17 00:00 76 05/30/17 23:00 76 05/30/17 22:00 78 05/30/17 21:00 80 05/30/17 20:03 98 21 05/30/17 20:00 98.6 76 20 138/66 97 05/30/17 20:00 98.6 76 20 138/66 97 05/30/17 20:00 76 05/30/17 19:00 76 05/30/17 18:00 66 05/30/17 17:00 64 05/30/17 16:30 68 05/30/17 16:30 97.9 68 16 115/72 99 05/30/17 16:25 16 05/30/17 15:41 18 99 Nasal Cannula 2 05/30/17 15:41 99 Nasal Cannula 2 Physical Exam Not in distress, well-nourished, looks stated age PERRL, pink conjunctiva without injection, anicteric Nose without bleeding, airway patent, oropharynx clear Supple neck, no masses or thyromegaly, trachea midline Normal rate and regular rhythm, no murmurs gallops or rubs appreciated. Clear to auscultation and symmetric bilaterally, normal respiratory effort. Normal bowel sounds, soft, non-tender, nondistended, no guarding. Extremities without clubbing, cyanosis, or edema. No rash of generalized distribution. Skin is warm and dry. AAO x3, no cranial nerve deficits, moves all 4 extremities, no focal neurologic deficits Normal mood, appropriate affect Laboratory Laboratory Tests Test 05/31/17 04:38 White Blood Count 14.2 Red Blood Count 4.07 Hemoglobin 12.4 Hematocrit 36.8 Mean Corpuscular Volume 90.3 Mean Corpuscular Hemoglobin 30.4 Mean Corpuscular Hemoglobin 33.6 Concent Red Cell Distribution Width 13.1 Platelet Count 239 Mean Platelet Volume 7.7 Neutrophils (%) (Auto) 84.2 Lymphocytes (%) (Auto) 9.7 Monocytes (%) (Auto) 5.7 Eosinophils (%) (Auto) 0.0 Basophils (%) (Auto) 0.4 Neutrophils # (Auto) 12.0 Lymphocytes # (Auto) 1.4 Monocytes # (Auto) 0.8 Eosinophils # (Auto) 0.0 Basophils # (Auto) 0.1 CBC Comment DIFF FINAL Differential Comment Sodium Level 138 Potassium Level 3.4 Chloride Level 103 Carbon Dioxide Level 24.9 Anion Gap 10 Blood Urea Nitrogen 12 Creatinine 0.70 Estimat Glomerular Filtration 80 Rate Random Glucose 122 Calcium Level 8.6 Result Diagram: 05/31/1743705/31/17437 Assessment and Plan Problem List: (1) STEMI (ST elevation myocardial infarction) ICD Code: I21.3 Status: Acute Assessment and Plan This is an 82-year-old female with history of hypertension, atrial fibrillation and dyslipidemia presenting with chest pain ST elevated myocardial infarction-discuss with cardiology, status post PCI with DILSHAD to RCA. Follow-up echocardiogram. Continue aspirin, metoprolol, lisinopril , Effient and statin. Possible discharge tomorrow if echocardiogram is within normal limits. Hypertension-continue metoprolol and the syncopal Hypokalemia-replaced Mild leukocytosis-secondary to heart attack. DVT prophylaxis: On Effient. Code Status Likely discharge tomorrow. Problem Qualifiers (1) STEMI (ST elevation myocardial infarction): Qualified Code: I21.11 - ST elevation myocardial infarction involving right coronary artery Halina Granados MD May 31, 2017 15:29
[2017-05-31] MEDS ORDERED: POTASSIUM CHLORIDE 20 MEQ CONTROLLED RELEASE TAB PO ONE (15:45)
[2017-05-31] MEDS ORDERED: ATORVASTATIN 10 MG TAB PO SCH (21:00)
[2017-06-01] VITALS (19 sets, daily range): BP systolic 105–120; BP diastolic 57–70; PULSE 64–108; RESP 16–19; TEMP 97.6–98; O2SAT 95–98
[2017-06-01] MEDS: PRASUGREL 10 MG TAB PO SCH (09:53)
[2017-06-01] MEDS: ASPIRIN 81 MG CHEW TAB PO SCH (09:53)
[2017-06-01] MEDS: LISINOPRIL 5 MG TAB PO SCH (09:53)
[2017-06-01] MEDS: METOPROLOL TARTRATE 25 MG TAB PO SCH (09:54)
--- NOTE | 2017-06-01 10:11 | HHI.PR ---
Subjective Remarks Follow-up for chest pain No overnight events, no chest pain, fever, chills, shortness of breath or headache. Awaiting for echocardiogram. Discussed with Dr. Hunt. Objective Vitals Vital Signs Date Time Temp Pulse Resp B/P Pulse Ox O2 Delivery O2 Flow Rate FiO2 06/01/17 07:15 97.6 90 18 120/70 95 06/01/17 07:15 99 06/01/17 06:00 72 06/01/17 05:00 74 06/01/17 04:00 74 06/01/17 03:00 72 06/01/17 03:00 97.7 81 16 105/57 95 06/01/17 02:00 78 06/01/17 01:00 76 06/01/17 00:00 64 05/31/17 23:00 72 05/31/17 23:00 97.3 79 16 108/56 96 05/31/17 22:00 76 05/31/17 21:00 70 05/31/17 20:00 92 05/31/17 19:00 76 05/31/17 19:00 97.5 81 18 131/60 96 05/31/17 18:00 79 05/31/17 17:00 79 05/31/17 16:00 70 05/31/17 15:00 98.0 72 16 121/63 98 05/31/17 14:00 70 05/31/17 13:00 71 05/31/17 12:00 72 05/31/17 11:00 97.9 78 16 151/66 95 I/O 05/31/17 05/31/17 05/31/17 06/01/17 06/01/17 06/01/17 07:00 15:00 23:00 07:00 15:00 23:00 Intake Total 420 ml 800 ml 240 ml Output Total 500 ml Balance -80 ml 800 ml 240 ml Intake Oral 420 ml 800 ml 240 ml Output Urine Total 500 ml # Voids 1 4 2 # Bowel Movements 1 Result Diagram: 05/31/17 0438 05/31/17 0438 Objective Remarks Not in distress, well-nourished, looks stated age Normal rate and regular rhythm, no murmurs gallops or rubs appreciated. Clear to auscultation and symmetric bilaterally, normal respiratory effort. Normal bowel sounds, soft, non-tender, nondistended, no guarding. Extremities without clubbing, cyanosis, or edema. No rash of generalized distribution. Skin is warm and dry. AAO x3, no cranial nerve deficits, moves all 4 extremities, no focal neurologic deficits Normal mood, appropriate affect A/P Problem List: (1) STEMI (ST elevation myocardial infarction) ICD Code: I21.3 Status: Acute Assessment and Plan This is an 82-year-old female with history of hypertension, atrial fibrillation and dyslipidemia presenting with chest pain ST elevated myocardial infarction-discuss with cardiology, status post PCI with DILSHAD to RCA. Continue aspirin, metoprolol, lisinopril, Effient and statin. Discussed with Dr. Hunt, if echocardiogram is normal, can go home today. Echocardiogram still pending. Hypertension-continue metoprolol Hypokalemia-replaced Mild leukocytosis-secondary to heart attack. DVT prophylaxis: On Effient. Discharge Planning Discharge today if echocardiogram is normal. Problem Qualifiers (1) STEMI (ST elevation myocardial infarction): Qualified Code: I21.11 - ST elevation myocardial infarction involving right coronary artery Halina Granados MD Jun 01, 2017 10:11
[2017-06-01] MEDS ORDERED: METO25TA3 PO (10:16)
[2017-06-01] MEDS ORDERED: PRAS10TA PO (10:16)
[2017-06-01] MEDS ORDERED: LISI-519 PO (10:16)
[2017-06-01] MEDS ORDERED: ASPI81CH25 PO (10:16)
--- NOTE | 2017-06-01 10:19 | HHI.DS ---
Discharge Summary Admission Date May 30, 2017 at 15:35 Discharge Date: Jun 01, 2017 Admitting Diagnosis STEMI alert (1) STEMI (ST elevation myocardial infarction) ICD Code: I21.3 Procedures PCI Brief History - From Admission This is an 82-year-old female with history of hypertension, dyslipidemia, atrial fibrillation presenting to the emergency department with chest pain, patient was found to have ST elevated myocardial infarction, patient was brought emergently to the cardiac catheterization unit, status post stenting of the RCA. Presently, patient is chest pain-free. She denies smoking, there is a very strong family history of cardiac problems. Patient denies any headache, nausea, vomiting, palpitations or shortness of breath but she was winded with ambulation. CBC/BMP: 05/31/17 0438 05/31/17 0438 Significant Findings Laboratory Tests Test 05/30/17 05/31/17 15:07 04:38 White Blood Count 14.2 TH/MM3 14.2 TH/MM3 (4.0-11.0) (4.0-11.0) Monocytes (%) (Auto) 9.6 % (0.0-8.0) Eosinophils (%) (Auto) 5.3 % (0.0-4.0) Neutrophils # (Auto) 9.0 TH/MM3 12.0 TH/MM3 (1.8-7.7) (1.8-7.7) Monocytes # (Auto) 1.4 TH/MM3 (0-0.9) Eosinophils # (Auto) 0.8 TH/MM3 (0-0.4) Activated Partial 23.9 SEC Thromboplast Time (24.3-30.1) Bedside Glucose 166 MG/DL (60-95) Troponin I LESS THAN 0.02 NG/ML (0.02-0.05) Neutrophils (%) (Auto) 84.2 % (16.0-70.0) Potassium Level 3.4 MEQ/L (3.5-5.1) Estimat Glomerular Filtration 80 ML/MIN (>89) Rate Random Glucose 122 MG/DL (74-106) Imaging Last Impressions Chest X-Ray 05/30/17 1459 Signed Impressions: Service Date/Time: Tuesday, May 30, 2017 15:00 - CONCLUSION: 1. No acute cardiopulmonary findings. Zak Merlos MD PE at Discharge Not in distress, well-nourished, looks stated age Normal rate and regular rhythm, no murmurs gallops or rubs appreciated. Clear to auscultation and symmetric bilaterally, normal respiratory effort. Normal bowel sounds, soft, non-tender, nondistended, no guarding. Extremities without clubbing, cyanosis, or edema. No rash of generalized distribution. Skin is warm and dry. AAO x3, no cranial nerve deficits, moves all 4 extremities, no focal neurologic deficits Normal mood, appropriate affect Pt update on day of discharge No chest pain overnight, no events on telemetry. Denies any shortness of breath. Hospital Course This is an 82-year-old female with history of hypertension, atrial fibrillation and dyslipidemia presenting with chest pain. Patient was found to have ST elevated myocardial infarction, cardiology was consulted from the emergency department, patient went for emergent catheterization, status post PCI with DILSHAD to RCA. Issues echocardiogram showed a mildly reduced ejection fraction. She will Continue aspirin, metoprolol, lisinopril, Effient and statin. Patient was cleared by cardiology for discharge. Hospital stay was uneventful. Pt Condition on Discharge: Good Discharge Disposition: Discharge Home Discharge Time: > 30 minutes Discharge Instructions Follow up Referrals: Cardiology - 2 Weeks PCP Follow-up - 1 Week New Medications: Aspirin (Aspirin Low Strength) 81 Mg Chew 81 MG PO DAILY mi #30 EA Lisinopril (Lisinopril) 5 Mg Tab 5 MG PO DAILY mi #30 TAB Prasugrel (Effient) 10 Mg Tab 10 MG PO DAILY mi #30 TAB Continued Medications: Atorvastatin Calcium (Lipitor) 40 Mg Tab 40 MG PO DAILY Sotalol Hcl (Betapace) 80 Mg Tab 80 MG PO DAILY Spironolactone (Spironolactone) 50 Mg Tab 50 MG PO DAILY #30 Ref 0 TAB Verapamil Hcl (Isoptin Sr) 180 Mg Tabcr 360 MG PO DAILY Halina Granados MD Jun 01, 2017 10:19
--- NOTE | 2017-06-01 10:46 | PD.CARD.PN ---
Subjective Subjective Remarks no complaints no overnight events Objective Medications Current Medications Medications (Trade) Dose Ordered Sig/Jossie Route Start Time Stop Time Status Last Admin Sodium Chloride 2 ml 2 ml UNSCH PRN IVF 05/30/17 15:00 (Nitroglycerin-Dextrose Inj) 250 ml @ 0 mls/hr TITRATE IV 05/30/17 15:00 (Tylenol) 650 mg Q4H PRN PO 05/30/17 21:00 05/30/17 21:45 (Tylenol) 325 mg Q4H PRN PO 05/30/17 22:15 (Aspirin Chew) 81 mg DAILY PO 05/31/17 09:00 06/01/17 09:53 (Effient) 10 mg DAILY PO 05/31/17 09:00 06/01/17 09:53 (Atropine Inj) 0.5 mg UNSCH PRN IV 05/30/17 22:15 (Zofran Inj) 4 mg Q4H PRN IV 05/30/17 22:15 (Lopressor) 12.5 mg BID PO 05/31/17 09:00 06/01/17 09:54 (Prinivil) 5 mg DAILY PO 05/31/17 09:00 06/01/17 09:53 (Lipitor) 10 mg HS PO 05/31/17 21:00 05/31/17 20:19 Vital Signs / I&O Vital Signs Date Time Temp Pulse Resp B/P Pulse Ox O2 Delivery O2 Flow Rate FiO2 06/01/17 10:00 84 06/01/17 09:00 70 06/01/17 08:00 78 06/01/17 07:15 97.6 90 18 120/70 95 06/01/17 07:15 99 06/01/17 06:00 72 06/01/17 05:00 74 06/01/17 04:00 74 06/01/17 03:00 72 06/01/17 03:00 97.7 81 16 105/57 95 06/01/17 02:00 78 06/01/17 01:00 76 06/01/17 00:00 64 05/31/17 23:00 72 05/31/17 23:00 97.3 79 16 108/56 96 05/31/17 22:00 76 05/31/17 21:00 70 05/31/17 20:00 92 05/31/17 19:00 76 05/31/17 19:00 97.5 81 18 131/60 96 05/31/17 18:00 79 05/31/17 17:00 79 05/31/17 16:00 70 05/31/17 15:00 98.0 72 16 121/63 98 05/31/17 14:00 70 05/31/17 13:00 71 05/31/17 12:00 72 05/31/17 11:00 97.9 78 16 151/66 95 I/O 05/31/17 05/31/17 05/31/17 06/01/17 06/01/17 06/01/17 07:00 15:00 23:00 07:00 15:00 23:00 Intake Total 420 ml 800 ml 240 ml Output Total 500 ml Balance -80 ml 800 ml 240 ml Intake Oral 420 ml 800 ml 240 ml Output Urine Total 500 ml # Voids 1 4 2 # Bowel Movements 1 Physical Exam GENERAL: Well-nourished, well-developed patient. SKIN: Warm and dry. HEAD: Normocephalic. EYES: No scleral icterus. No injection or drainage. NECK: Supple, trachea midline. No JVD or lymphadenopathy. CARDIOVASCULAR: Regular rate and rhythm without murmurs, gallops, or rubs. RESPIRATORY: Breath sounds equal bilaterally. No accessory muscle use. GASTROINTESTINAL: Abdomen soft, non-tender, nondistended. EXTREMITIES: No cyanosis, or edema. NEUROLOGICAL: Awake, alert, and oriented x 3. Non-focal. Imaging Last Impressions Chest X-Ray 05/30/17 3699 Signed Impressions: Service Date/Time: Tuesday, May 30, 2017 15:00 - CONCLUSION: 1. No acute cardiopulmonary findings. Zak Merlos MD Assessment and Plan Problem List: (1) STEMI (ST elevation myocardial infarction) Assessment and Plan: Cont DAPT Cont Home medications Echo pending Stable from CV standpoint to be d/c home today Follow up wit cardiology upon discharge Problem Qualifiers (1) STEMI (ST elevation myocardial infarction): Qualified Code: I21.11 - ST elevation myocardial infarction involving right coronary artery Sarmad Contreras MD Jun 01, 2017 10:46
--- NOTE | 2017-06-01 12:25 | ECHRPT ---
Indication: Coronary Atherosclerosis CONCLUSIONS Mildly dilated left ventricle. Wall thickness is measured at the upper limits of normal. The left ventricular systolic function is mildly reduced with an estimated ejection fraction near 45 %. There is global left ventricular dysfunction. The left atrial size is mildly dilated. Trace mitral valve regurgitation. Mild thickening of the mitral valve leaflets. Mitral annular calcification is present. There is trace tricuspid valve regurgitation. The estimated pulmonary arterial pressure is 30 mmHg. BP: / HR: Rhythm: Other MEASUREMENTS (Male / Female) Normal Values Technical Quality:Fair 2D ECHO LV Diastolic Diameter PLAX 4.2 cm 4.2 - 5.9 / 3.9 - 5.3 cm LV Systolic Diameter PLAX 3.2 cm IVS Diastolic Thickness 1.1 cm 0.6 - 1.0 / 0.6 - 0.9 cm LVPW Diastolic Thickness 0.8 cm 0.6 - 1.0 / 0.6 - 0.9 cm LV Relative Wall Thickness 0.5 RV Internal Dim ED PLAX 1.8 cm LA Systolic Diameter LX 3.2 cm 3.0 - 4.0 / 2.7 - 3.8 cm M-MODE Aortic Root Diameter MM 2.5 cm AV Cusp Separation MM 1.6 cm DOPPLER AV Peak Velocity 141.0 cm/s AV Peak Gradient 8.0 mmHg LVOT Peak Velocity 75.4 cm/s LVOT Peak Gradient 2.3 mmHg Mitral E Point Velocity 47.8 cm/s Mitral A Point Velocity 92.0 cm/s Mitral E to A Ratio 0.5 TR Peak Velocity 251.0 cm/s TR Peak Gradient 25.0 mmHg FINDINGS LEFT VENTRICLE Mildly dilated left ventricle. Wall thickness is measured at the upper limits of normal. The left ventricular systolic function is mildly reduced with an estimated ejection fraction near 45 %. There is global left ventricular dysfunction. Doppler parameters are consistent with impaired left ventricular relaxtion (grade 1 diastolic dysfun ction). RIGHT VENTRICLE Normal right ventricular size and systolic function. LEFT ATRIUM The left atrial size is mildly dilated. RIGHT ATRIUM The right atrial size is normal. ATRIAL SEPTUM Normal atrial septal thickness without atrial level shunting by limited color doppler interrogation. AORTA The aortic root and proximal ascending aorta are normal in size on limited imaging. MITRAL VALVE Trace mitral valve regurgitation. Mild thickening of the mitral valve leaflets. Mitral annular calcification is present. AORTIC VALVE Trileaflet aortic valve. No aortic valve stenosis or regurgitation. TRICUSPID VALVE There is trace tricuspid valve regurgitation. The estimated pulmonary arterial pressure is 30 mmHg. PULMONARY VALVE The pulmonary valve is not well visualized. VESSELS The inferior vena cava is normal in size. PERICARDIUM No pericardial effusion. Brauilo Messer MD (Electronically Signed) Final Date:01 June 2017 11:38
== END 2017-06-01 19:05 | disposition home or self-care (01) | DRG 247 ==
LOC: NEPE 14:37 → NEDA 15:35 → HCIN 16:12
PROVIDERS: ADMIT Family Medicine; ATTEND Family Medicine
PROC: 027034Z Dilation of Coronary Artery, One Artery with Drug-eluting Intraluminal Device, Percutaneous Approach (ICD-10-PCS; principal; 2017-05-30)
PROC: 4A023N7 Measurement of Cardiac Sampling and Pressure, Left Heart, Percutaneous Approach (ICD-10-PCS; 2017-05-30)
PROC: B2111ZZ Fluoroscopy of Multiple Coronary Arteries using Low Osmolar Contrast (ICD-10-PCS; 2017-05-30)
DX: I21.19 ST elevation (STEMI) myocardial infarction involving other coronary artery of inferior wall (principal); I48.91 Unspecified atrial fibrillation; I10 Essential (primary) hypertension; E78.5 Hyperlipidemia, unspecified; E87.6 Hypokalemia; D72.829 Elevated white blood cell count, unspecified
CPT/HCPCS: 71010; 80048; 82310; 82435; 82550; 82565; 82947; 83735; 83880; 84132; 84295; 84484; 84520; 85025; 85610; 85730; 92941; 93005; 93306; 93454; 99285; C1725; C1760; C1769; C1874; C1887; C1893; G0269; J0461; J0583; J1644; J2250; J2370; J3010; Q9967